=== PATIENT | female | born 1980 | race American Indian/Alaskan Native ===

== ENCOUNTER 2017-02-16 08:39 | Emergency (ER) | payer OTHER ==
[2017-02-16 08:40] VITALS: BMI 34.9
[2017-02-16 08:55] VITALS: TEMP 98.8
[2017-02-16] MEDS ORDERED: Lidocaine 1%/Epinephrine 1:100000 30 ml vial IJ STA (09:04)
--- NOTE | 2017-02-16 09:05 | ED PDOC ---
Arrival/HPI - General Chief Complaint: Abnormal Skin Integrity Time Seen by Provider: 02/16/17 08:58 Historian: Patient - History of Present Illness Narrative History of Present Illness (Text): 02/16/17 09:00 Maryan Del Cid is a 36 year old female, who presents to the emergency department complaining of an abscess in the right axilla. Patient notes she has had this multiple times in the past along with I&D's. Patient denies fever, vomiting, headache, or other complaints. Time/Duration: < week Symptom Onset: Sudden Symptom Course: Unchanged Past Medical History - Provider Review Nursing Documentation Reviewed: Yes - Infectious Disease Hx of Infectious Diseases: None - Tetanus Immunization Tetanus Immunization: Unknown - Reproductive Menopause: No - Past Medical History Past Medical History: No Previous - Cardiac Hx Cardiac Disorders: No - Pulmonary Hx Respiratory Disorders: No - Neurological Hx Neurological Disorder: No - HEENT Hx HEENT Disorder: No - Renal Hx Renal Disorder: No - Endocrine/Metabolic Hx Endocrine Disorders: No - Hematological/Oncological Hx Blood Disorders: No - Integumentary Hx Dermatological Disorder: Yes Other/Comment: axila abscess bilateral and pylinidal cyst - Musculoskeletal/Rheumatological Hx Musculoskeletal Disorders: No - Gastrointestinal Hx Gastrointestinal Disorders: No Hx Bowel Surgery: No - Genitourinary/Gynecological Hx Genitourinary Disorders: No - Psychiatric Hx Psychophysiologic Disorder: No Hx Depression: No Hx Emotional Abuse: No Hx Physical Abuse: No Hx Substance Use: No - Past Surgical History Past Surgical History: Non-Contributing - Surgical History Hx Orthopedic Surgery: Yes (FX JAW, metal plate) - Anesthesia Hx Anesthesia: Yes Hx Anesthesia Reactions: No Hx Malignant Hyperthermia: No - Suicidal Assessment Feels Threatened In Home Enviroment: No Family/Social History - Physician Review Nursing Documentation Reviewed: Yes Family/Social History: Unknown Family HX Smoking Status: Heavy Smoker > 10 Cigarettes Daily Hx Alcohol Use: No Hx Substance Use: No Hx Substance Use Treatment: No Allergies/Home Meds Allergies/Adverse Reactions: Allergies string beans Allergy (Uncoded 02/16/17 08:55) RASH Review of Systems - Review of Systems Constitutional: absent: Fevers Respiratory: absent: SOB Cardiovascular: absent: Chest Pain Gastrointestinal: absent: Abdominal Pain Genitourinary Female: absent: Dysuria Musculoskeletal: absent: Back Pain Skin: Abscess (under right axilla ) Neurological: absent: Headache Physical Exam Vital Signs Reviewed: Yes Vital Signs Temp Pulse Resp BP Pulse Ox 02/16/17 09:56 98.8 F 78 18 133/88 99 02/16/17 08:51 98.8 F 60 16 113/80 98 Temperature: Afebrile Blood Pressure: Normal Pulse: Regular Respiratory Rate: Normal Appearance: Positive for: Well-Appearing, Non-Toxic, Comfortable Pain Distress: None Mental Status: Positive for: Alert and Oriented X 3 - Systems Exam Head: Present: Atraumatic, Normocephalic Pupils: Present: PERRL Extroacular Muscles: Present: EOMI Conjunctiva: Present: Normal Breast/Axillary: Present: Fluctuance (right axilla) Upper Extremity: Present: Normal Inspection, Normal ROM, NORMAL PULSES, Neurovascularly Intact, Capillary Refill < 2s. No: Cyanosis, Edema, Tenderness , Swelling, Deformity Neurological: Present: GCS=15, CN II-XII Intact, Speech Normal Skin: Present: Warm, Dry, Normal Color, Abscess (right axilla abscess with fluctuance ). No: Rashes Psychiatric: Present: Alert, Oriented x 3, Normal Insight, Normal Concentration Medical Decision Making ED Course and Treatment: 02/16/17 11:16 bedside us shows small colectionnitrous oxide given, with i and d.. 2 day return for wound check - Medication Orders Current Medication Orders: Discontinued Medications Lidocaine/Epinephrine (Lidocaine 1%/Epinephrine 1:[id number] 30 Ml) 10 ml IJ STAT STA Stop: 02/16/17 09:05 Last Admin: 02/16/17 09:18 Dose: 10 ml Naproxen (Anaprox Ds) 550 mg PO STAT STA Stop: 02/16/17 09:54 - Procedure PROCEDURE NOTE (Text): 02/16/17 Procedure: Incision & Drainage Performed by the emergency provider Dr. Suarez Indication: Abscess Location: right axilla Preparation: The area was prepped and draped in the usual sterile fashion and was cleansed. Local infiltration of Lidocaine 1% with Epi was used for anesthesia. Procedure: The most fluctuant portion of the abscess was incised with a #11 scalpel. Approximately 1 mL was obtained. The abscess was packed. A dressing was applied by the RN. Post-Procedure: On exam the abscess is notably less fluctuant. The patient tolerated the procedure well, and there were no complications. Cultured: NO - Scribe Statement The provider has reviewed the documentation as recorded by the Scribe Yaneth Holt Provider Scribe Attestation: All medical record entries made by the Scribe were at my direction and personally dictated by me. I have reviewed the chart and agree that the record accurately reflects my personal performance of the history, physical exam, medical decision making, and the department course for this patient. I have also personally directed, reviewed, and agree with the discharge instructions and disposition. Disposition/Present on Arrival - Present on Arrival Any Indicators Present on Arrival: No History of DVT/PE: No History of Uncontrolled Diabetes: No Urinary Catheter: No History of Decub. Ulcer: No History Surgical Site Infection Following: None - Disposition Have Diagnosis and Disposition been Completed?: Yes Diagnosis: Abscess Disposition: HOME/ ROUTINE Disposition Time: 10:00 Condition: STABLE Discharge Instructions (ExitCare): Abscess Incision and Drainage (ED), Abscess (ED) Additional Instructions: juan lo with your doctor. return to emergency room in 2 days or your doctor for wound check Prescriptions: Naproxen 500 mg PO BID PRN #14 tablet.[address] BUCK Reason: Pain, Mild (1-3) Sulfamethoxazole/Trimethoprim [Bactrim DS 800 mg-160 mg] 1 tab PO BID #14 tab Referrals: [facility] [Outside] - [place] up with [place] [facility] [place] - Follow up with primary Forms: [facility] (Chinese), WORK NOTE
[2017-02-16] MEDS ORDERED: Naproxen 550 mg Tab PO STA (09:53)
[2017-02-16 09:58] VITALS: BP 133/88; PULSE 78; RESP 18; O2SAT 99
== END 2017-02-16 09:56 | disposition home or self-care (01) ==
LOC: ED 08:39
DX: L02.411 Cutaneous abscess of right axilla (principal); F17.210 Nicotine dependence, cigarettes, uncomplicated

== ENCOUNTER 2017-07-02 21:52 | Observation (INO) | payer OTHER ==
[2017-07-02 22:03] VITALS: RESP 18
--- NOTE | 2017-07-02 22:25 | ED PDOC ---
Arrival/HPI - General Chief Complaint: Chest Pain Time Seen by Provider: 07/02/17 22:04 Historian: Patient - History of Present Illness Narrative History of Present Illness (Text): 07/02/17 22:23 A 37 year old female, with no significant past medical history, presents to the emergency department complaining of intermittent, mid-sternal chest discomfort. The patient states that she is a smoker, but denies any drug use. The patient denies fevers, chills, headache, dizziness, shortness of breath, dyspnea on exertion, cough, abdominal pain, nausea, vomiting, diarrhea, back pain, neck pain, urinary/bowel changes, or any other complaint. PMD: Dr. Telles Time/Duration: Other (Few Days) Symptom Onset: Sudden Symptom Course: Unchanged Activities at Onset: Rest, Light Context: Home Past Medical History - Provider Review Nursing Documentation Reviewed: Yes - Infectious Disease Hx of Infectious Diseases: None - Tetanus Immunization Tetanus Immunization: Unknown - Past Medical History Past Medical History: No Previous - Cardiac Hx Cardiac Disorders: No - Pulmonary Hx Respiratory Disorders: No - Neurological Hx Neurological Disorder: No - HEENT Hx HEENT Disorder: No - Renal Hx Renal Disorder: No - Endocrine/Metabolic Hx Endocrine Disorders: No - Hematological/Oncological Hx Blood Disorders: No - Integumentary Hx Dermatological Disorder: Yes Other/Comment: axila abscess bilateral and pylinidal cyst - Musculoskeletal/Rheumatological Hx Musculoskeletal Disorders: No - Gastrointestinal Hx Gastrointestinal Disorders: No Hx Bowel Surgery: No - Genitourinary/Gynecological Hx Genitourinary Disorders: No - Psychiatric Hx Psychophysiologic Disorder: No Hx Depression: No Hx Emotional Abuse: No Hx Physical Abuse: No Hx Substance Use: No - Past Surgical History Past Surgical History: Non-Contributing - Surgical History Hx Orthopedic Surgery: Yes (FX JAW, metal plate) - Anesthesia Hx Anesthesia: Yes Hx Anesthesia Reactions: No Hx Malignant Hyperthermia: No - Suicidal Assessment Feels Threatened In Home Enviroment: No Family/Social History - Physician Review Nursing Documentation Reviewed: Yes Family/Social History: No Known Family HX Smoking Status: Heavy Smoker > 10 Cigarettes Daily Hx Alcohol Use: No Hx Substance Use: No Hx Substance Use Treatment: No Allergies/Home Meds Allergies/Adverse Reactions: Allergies string beans Allergy (Uncoded 07/02/17 21:58) RASH Home Medications: Home Meds Medication Instructions Recorded Confirmed No Known Home Med 07/02/17 07/02/17 Review of Systems - Physician Review All systems were reviewed & negative as marked: Yes - Review of Systems Constitutional: absent: Fevers, Night Sweats Respiratory: absent: SOB, Cough Cardiovascular: Chest Pain (Mid-sternal chest discomfort.). absent: LOZANO Gastrointestinal: absent: Abdominal Pain, Stool Changes, Diarrhea, Nausea, Vomiting Genitourinary Female: absent: Urine Output Changes Musculoskeletal: absent: Back Pain, Neck Pain Neurological: absent: Headache, Dizziness Physical Exam Vital Signs Reviewed: Yes Vital Signs Temp Pulse Resp BP Pulse Ox 07/02/17 22:02 98.0 F 66 18 122/75 100 Temperature: Afebrile Blood Pressure: Normal Pulse: Regular Respiratory Rate: Normal Appearance: Positive for: Well-Appearing, Non-Toxic, Comfortable Pain Distress: None Mental Status: Positive for: Alert and Oriented X 3 - Systems Exam Head: Present: Atraumatic, Normocephalic Pupils: Present: PERRL Extroacular Muscles: Present: EOMI Conjunctiva: Present: Normal Mouth: Present: Moist Mucous Membranes Neck: Present: Normal Range of Motion Respiratory/Chest: Present: Clear to Auscultation, Good Air Exchange. No: Respiratory Distress, Accessory Muscle Use Cardiovascular: Present: Regular Rate and Rhythm, Normal S1, S2. No: Murmurs Abdomen: No: Tenderness, Distention, Peritoneal Signs Back: Present: Normal Inspection Upper Extremity: Present: Normal Inspection. No: Cyanosis, Edema Lower Extremity: Present: Normal Inspection. No: Edema Neurological: Present: GCS=15, CN II-XII Intact, Speech Normal Skin: Present: Warm, Dry, Normal Color. No: Rashes Psychiatric: Present: Alert, Oriented x 3, Normal Insight, Normal Concentration Medical Decision Making ED Course and Treatment: 07/02/17 22:26 Impression: A 37 year old male presents to the emergency department complaining of mid- sternal chest discomfort. Plan: -- EKG -- Chest X-ray -- Labs -- Reassess and disposition Progress Notes: EKG: Ordered, reviewed, and independently interpreted the EKG. Rate : 70 BPM Rhythm : NSR Interpretation : Normal intervals. Normal EKG. 07/03/17 00:23: Chest X-ray read and interpreted by me shows no acute processes. 07/03/17 00:35: Case discussed with Dr. Telles in detail who accepts patient to her service. - Lab Interpretations Lab Results: 07/02/17 22:20 07/02/17 22:20 Lab Results 07/02/17 22:20: WBC 6.0, RBC 4.28, Hgb 13.4, Hct 37.2, MCV 86.9, MCH 31.3, MCHC 36.0, RDW 12.8, Plt Count 259, MPV 11.8 H 07/02/17 22:20: Sodium 140, Potassium 3.1 L, Chloride 103, Carbon Dioxide 26, Anion Gap 14, BUN 12, Creatinine 0.6 L, Est GFR ( Amer) > 60, Est GFR ( Non-Af Amer) > 60, Random Glucose 109, Calcium 9.1, Total Bilirubin 0.4, AST 20 , ALT 19, Alkaline Phosphatase 54, Lactate Dehydrogenase 405, Total Creatine Kinase 122, Troponin I < 0.01, Total Protein 7.3, Albumin 4.4, Globulin 2.9, Albumin/Globulin Ratio 1.5 07/02/17 22:20: PT 1.1 L, INR 0.96, APTT 27.5, D-Dimer, Quantitative 219 I have reviewed the lab results: Yes - RAD Interpretation Radiology Orders: 07/02/17 22:14 CHEST PORTABLE [RAD] Stat - EKG Interpretation Interpreted by ED Physician: Yes Type: 12 lead EKG - Medication Orders Current Medication Orders: Discontinued Medications Aspirin (Aspirin) 325 mg PO ONCE STA Stop: 07/03/17 00:24 Potassium Chloride (K-Dur 20 Meq Er Tab) 40 meq PO STAT STA Stop: 07/03/17 00:24 - Scribe Statement The provider has reviewed the documentation as recorded by the Scribe Roma Cornejo Provider Scribe Attestation: All medical record entries made by the Scribe were at my direction and personally dictated by me. I have reviewed the chart and agree that the record accurately reflects my personal performance of the history, physical exam, medical decision making, and the department course for this patient. I have also personally directed, reviewed, and agree with the discharge instructions and disposition. Disposition/Present on Arrival - Present on Arrival Any Indicators Present on Arrival: No History of DVT/PE: No History of Uncontrolled Diabetes: No Urinary Catheter: No History of Decub. Ulcer: No History Surgical Site Infection Following: None - Disposition Have Diagnosis and Disposition been Completed?: Yes Diagnosis: Chest pain Disposition: HOSPITALIZED Disposition Time: 00:35 Patient Plan: Observation Patient Problems: Current Active Problems Problem Status Onset Chest pain Acute Condition: STABLE Discharge Instructions (ExitCare): Chest Pain (ED) Referrals: Yolanda Telles MD [Primary Care Provider] - Follow up with primary Forms: [facility] (Indonesian)
[2017-07-02 22:40] LABS: HEMOGLOBIN 13.4 g/dL (12.0-16.0); MEAN CELL VOLUME 86.9 fl (80.0-105.0); MEAN CORPUSCULAR HEMOGLOBIN 31.3 pg (25.0-35.0); MEAN PLATELET VOLUME 11.8 fl (7.0-11.0); RBC 4.28 10^6/uL (3.5-6.1); RED CELL DISTRIBUTION WIDTH 12.8 % (11.5-14.5)
[2017-07-02 22:52] LABS: ALB/GLOB RATIO 1.5 (1.1-1.8); ALBUMIN 4.4 g/dL (3.0-4.8); ALT/SGPT 19 U/L (7-56); AST/SGOT 20 U/L (14-36); BLOOD UREA NITROGEN 12 mg/dL (7-21); CALCIUM 9.1 mg/dL (8.4-10.5); GFR AFRICAN-AMERICAN > 60; GFR NON-AFRICAN AMERICAN > 60
[2017-07-02 22:59] LABS: INR 0.96 (0.93-1.08); PROTHROMBIN TIME 1.1 SECONDS (9.4-12.5)
[2017-07-02 23:00] LABS: PARTIAL THROMBOPLASTIN TIME 27.5 Seconds (25.1-36.5)
[2017-07-02 23:05] LABS: TROPONIN I < 0.01 ng/mL
[2017-07-03] MEDS ORDERED: Potassium Chloride 20 mEq ER Tab PO STA (00:23)
[2017-07-03 04:00] VITALS: BMI 30.4
[2017-07-03 06:23] VITALS: O2SAT 99
[2017-07-03 07:21] LABS: TROPONIN I 0.01 ng/mL
[2017-07-03 07:54] LABS: ALB/GLOB RATIO 1.3 (1.1-1.8); ALBUMIN 3.6 g/dL (3.0-4.8); ALT/SGPT 17 U/L (7-56); AST/SGOT 17 U/L (14-36); BLOOD UREA NITROGEN 13 mg/dL (7-21); CALCIUM 8.8 mg/dL (8.4-10.5); GFR AFRICAN-AMERICAN > 60; GFR NON-AFRICAN AMERICAN > 60; HDL CHOLESTEROL 54 mg/dL (29-60)
[2017-07-03 08:05] LABS: LDL CHOLESTEROL 64 mg/dL (0-129)
--- NOTE | 2017-07-03 08:42 | RAD ---
HISTORY: Chest pain. COMPARISON: 02/07/2013 FINDINGS: LUNGS: No active pulmonary disease. PLEURA: No significant pleural effusion identified, no pneumothorax apparent. CARDIOVASCULAR: Normal. OSSEOUS STRUCTURES: No significant abnormalities. VISUALIZED UPPER ABDOMEN: Normal. OTHER FINDINGS: None. IMPRESSION: No active disease. No significant interval change compared to the prior examination(s).
--- NOTE | 2017-07-03 09:11 | CARD ---
APPROVED REPORT EKG Measurement Heart [id number] <Conclusion> Normal sinus rhythm Normal ECG
[2017-07-03 12:18] VITALS: BP 109/70; PULSE 61; TEMP 98.3
[2017-07-03 15:09] LABS: URINE BILIRUBIN NEGATIVE (NEGATIVE); URINE BLOOD MODERATE (NEGATIVE); URINE GLUCOSE (UA) NEGATIVE (NEGATIVE); URINE LEUKOCYTE ESTERASE NEGATIVE Leu/uL (NEGATIVE); URINE PROTEIN NEGATIVE mg/dL (<30 mg/dL); URINE UROBILINOGEN 0.2 E.U./dL (<1 E.U./dL)
[2017-07-03 15:10] LABS: URINE APPEARANCE CLEAR (CLEAR); URINE COLOR LIGHT YELLOW (YELLOW)
--- NOTE | 2017-07-03 15:15 | CARD ---
APPROVED REPORT EXAM: Two-dimensional and M-mode echocardiogram with Doppler and color Doppler. INDICATION Chest Pain LVFX 2D DIMENSIONS Left Atrium (2D)4.0 (1.6-4.0cm)IVSd0.9 (0.7-1.1cm) LVDd4.3 (3.9-5.9cm)PWd0.8 (0.7-1.1cm) LVDs2.8 (2.5-4.0cm)FS (%) 34.3 % LVEF (%)63.6 (>50%) M-Mode DIMENSIONS Aortic Root2.90 (2.2-3.7cm)Aortic Cusp Exc.2.10 (1.5-2.0cm) Aortic Valve AoV Peak Swwntpdj426.0cm/Robert Peak GR.6mmHg Mitral Valve MV E Hopkujqm503.0cm/sMV A Spaupbpw20.5cm/sE/A ratio2.0 TDI Lateral E' Peak V13.60cm/sMedial E' Peak V11.70cm/sE/Lateral E'8.2 E/Medial E'9.5 Pulmonary Valve PV Peak Wntjkzmj83.9cm/sPV Peak Grad.2mmHg Tricuspid Valve TR Peak Fuhzlhlc593oj/sRAP LBDEIEFN44meEuHC Peak Gr.21mmHg [id number] LEFT VENTRICLE The left ventricle is normal size. There is normal left ventricular wall thickness. The left ventricular function is normal. The left ventricular ejection fraction is within the normal range. LV Ejection Fr; 64%. There is normal LV segmental wall motion. RIGHT VENTRICLE The right ventricle is normal size. The right ventricular systolic function is normal. ATRIA The left atrium size is normal. The right atrium size is normal. AORTIC VALVE The aortic valve is normal in structure. MITRAL VALVE The mitral valve is normal in structure. Mitral regurgitation is trace. TRICUSPID VALVE The tricuspid valve is normal in structure. There is trace to mild tricuspid regurgitation.RVSP 31mm Hg. PERICARDIAL EFFUSION There is no pericardial effusion. <Conclusion> The left ventricle is normal size. There is normal left ventricular wall thickness. The left ventricular function is normal. The left ventricular ejection fraction is within the normal range. LV Ejection Fr; 64%. There is normal LV segmental wall motion. The right ventricular systolic function is normal. The right ventricle is normal size. The left atrium size is normal. The right atrium size is normal. The aortic valve is normal in structure. The tricuspid valve is normal in structure. There is trace to mild tricuspid regurgitation.RVSP 31mm Hg. There is no pericardial effusion.
[2017-07-03 15:24] LABS: URINE BACTERIA TRACE (NEG); URINE RBC 0 - 2 /hpf (0-2); URINE WBC 0 - 2 /hpf (0-6)
--- NOTE | 2017-07-03 17:05 | CON ---
DATE: 07/03/2017 SERVICE: Cardiology. REASON FOR THE CONSULTATION AND FOLLOWUP: Cardiac evaluation, chest pain. BRIEF CLINICAL HISTORY: This is a 37-year-old female with no significant past medical history, came in with complaint of chest pain, feeling of pulling heart inside, so came to the emergency room. Denies any dyspnea on exertion, chest pain on exertion. 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 CURRENT MEDICATIONS: None. PAST HISTORY: None. SOCIAL HISTORY: Denies smoking. Denies any history of alcohol abuse. FAMILY HISTORY: Nothing significant. PAST SURGICAL HISTORY: Significant for ankle fracture, history of plate on jaw, history of pilonidal cyst, history of removal of axillary cyst infected. REVIEW OF SYSTEMS: As per HPI. PHYSICAL EXAMINATION: GENERAL: Height of the patient is 5 feet 5 inches, weight is 182 pounds, body mass index more than 32 kg/m2. VITAL SIGNS: Temperature afebrile, heart rate 64, blood pressure 105/68. HEENT: PERRLA, intact. NECK: Supple. No carotid bruit or thyromegaly. CHEST: Clear to auscultation. HEART: S1 and S2, regular. ABDOMEN: Soft. EXTREMITIES: Clubbing and cyanosis negative. LABORATORY DATA: WBC 6, hemoglobin 13.5, hematocrit 37.2, and platelet count 259. Chemistries show sodium 130, potassium 4.2, chloride 108, carbon dioxide 22, anion gap of 12. BUN 13, creatinine 0.6. TSH 2.77. EKG shows normal sinus rhythm, no acute ST-T wave changes noted. IMPRESSION: Atypical chest pain, very tenderness on the chest, very low risk for cardiac event. RECOMMENDATION: We will add lipid profile, TSH, hemoglobin A1c, echo, and schedule a stress test for risk stratification as outpatient. A paper has been given to Cardiology Department to schedule a stress test as an outpatient. We will discontinue telemetry and start some ibuprofen and NSAID for pain. We will follow with you. The patient had yesterday, potassium that was supplemented, now it is back to normal. Thank you Dr. Telles for providing us the opportunity in taking care of the patient, Maryan Del Cid. Danny Sotomayor MD
--- NOTE | 2017-07-06 08:43 | HP ---
The patient is a 37-year-old female. The patient was seen and examined on the bedside on 07/03/2017 in the telemetry. CHIEF COMPLAINT: Chest pain. HISTORY OF PRESENT ILLNESS: The patient is a 37-year-old, my private patient, with no significant past medical history except hidradenitis suppurativa, came to the emergency department complaining of intermittent midsternal chest discomfort. Patient states that she is a smoker, but denies any drug abuse. Denies fever, chills, headache, dizziness, shortness of breath, dyspnea on exertion, cough, abdominal pain, nausea, vomiting, diarrhea, back pain, hematuria, hematochezia, neck pain, urinary changes or bowel changes. PAST MEDICAL HISTORY: Hidradenitis suppurativa, history of pilonidal cyst, history of jaw metal plate. FAMILY HISTORY: Father has history of hypertension, renal insufficiency. Mother, noncontributory. HABITS: Heavy smoker, 10 cigarettes a day. Alcohol: No. Substance abuse: No. ALLERGIES: PATIENT had BEES ALLERGY. HOME MEDICATIONS: Denied. REVIEW OF SYSTEMS: The patient was seen and examined at the bedside to the telemetry, looking comfortable. No nausea, vomiting or diarrhea. No hematuria or hematochezia. No swelling of the leg. No chest pain at that moment of the examination. No fever, no chills. No shortness of breath. No coughing. No abdominal pain, stool changes, diarrhea, nausea, or vomiting. No back pain. PHYSICAL EXAMINATION: VITAL SIGNS: Temperature 98, pulse 56, respiratory rate 18, blood pressure 128/75, pulse oximetry 100. HEENT: Head, normocephalic and atraumatic. Eyes, PERRLA. Extraocular muscles intact. Conjunctivae clear. Nose patent. Mucous membrane moist. NECK: Supple. No carotid bruit. No JVD or thyromegaly. CHEST: Bilaterally symmetrical. HEART: S1 and S2 positive. LUNGS: Clear to auscultation. ABDOMEN: Soft, bowel sounds present. No organomegaly. EXTREMITIES: No edema, no cyanosis. NEUROLOGIC: The patient is awake, alert. Moving all 4 extremities. No focal deficit. LABORATORY DATA: White blood cell 6, hemoglobin 13.4, hematocrit noted Sodium 140, potassium 3.1, BUN 12, creatinine 0.6 and glucose 109. ASSESSMENT AND PLAN: The patient is a 37-year-old lady with hypokalemia, replaced and history of hidradenitis suppurativa, came with chest pain. Potassium was replaced. Chest pain looks like acute. Vitals are stable. Troponins were less than 0.01, two sets. Cardiology consult called, seen by Dr. Sotomayor. Patient is a smoker. According to painter maintenance, chest pain looks like atypical, very low risk for cardiac event. [employer] Insulator Helper cleared the patient, we will discharge the patient. We will follow up as outpatient. Yolanda Telles MD MTDD
== END 2017-07-03 16:06 | disposition home or self-care (01) ==
LOC: ED 21:52 → ERH 07-03 00:33 → 2RSO 07-03 03:35
PROVIDERS: ADMIT Internal Medicine; ATTEND Internal Medicine
DX: R07.89 Other chest pain (principal); E87.6 Hypokalemia; F17.210 Nicotine dependence, cigarettes, uncomplicated; L73.2 Hidradenitis suppurativa; Z82.49 Family history of ischemic heart disease and other diseases of the circulatory system
CPT/HCPCS: 36415; 71045; 80053; 80061; 81001; 82550; 83036; 83615; 84443; 84484; 85027; 85378; 85610; 85730; 93005; 93306; 99285; G0378

== ENCOUNTER 2017-12-15 15:42 | Emergency (ER) | payer OTHER ==
[2017-12-15 16:00] VITALS: BMI 29.9
[2017-12-15 16:09] VITALS: RESP 18; TEMP 98.3; O2SAT 100
--- NOTE | 2017-12-15 16:49 | ED PDOC ---
Arrival/HPI - General Chief Complaint: Chest Pain Time Seen by Provider: 12/15/17 15:50 Historian: Patient - History of Present Illness Narrative History of Present Illness (Text): 12/15/17 16:05 37 year old female, with no significant past medical history, presents to the Emergency Department complaining of intermittent mid-sternal chest pain since waking up this morning. Patient describes a stabbing pain similar to symptoms in the past secondary to hypokalemia. Patient reports taking potassium prior to arrival with no improvement to symptoms prompting her to present to the Emergency Department for further evaluation. Patient denies any other associated somatic complaints. Patient denies any fever, chills, nausea, vomiting, diarrhea, abdominal pain, shortness of breath, headache, dizziness, neck pain or back pain. Patient denies OCP use, history of blood clots, prolonged immobility, recent surgery, diabetes, hypertension or any cardiac disorder. Patient admits to tobacco use. Time/Duration: 4-6 hours Symptom Onset: Gradual Symptom Course: Unchanged Activities at Onset: Light Context: Home Past Medical History - Provider Review Nursing Documentation Reviewed: Yes - Infectious Disease Hx of Infectious Diseases: None - Tetanus Immunization Tetanus Immunization: Unknown - Past Medical History Past Medical History: No Previous - Cardiac Hx Cardiac Disorders: No - Pulmonary Hx Respiratory Disorders: No - Neurological Hx Neurological Disorder: No - HEENT Hx HEENT Disorder: No - Renal Hx Renal Disorder: No - Endocrine/Metabolic Hx Endocrine Disorders: No - Hematological/Oncological Hx Blood Disorders: Yes Hx Sickle Cell Trait: Yes - Integumentary Hx Dermatological Disorder: Yes Other/Comment: axila abscess bilateral and pylinidal cyst - Musculoskeletal/Rheumatological Hx Musculoskeletal Disorders: No - Gastrointestinal Hx Gastrointestinal Disorders: No Hx Bowel Surgery: No - Genitourinary/Gynecological Hx Genitourinary Disorders: No - Psychiatric Hx Psychophysiologic Disorder: No Hx Substance Use: No - Past Surgical History Past Surgical History: Non-Contributing - Surgical History Other/Comment: jaw repair,metal plate - Anesthesia Hx Anesthesia: Yes Hx Anesthesia Reactions: No Hx Malignant Hyperthermia: No - Suicidal Assessment Feels Threatened In Home Enviroment: No Family/Social History - Physician Review Nursing Documentation Reviewed: Yes Family/Social History: No Known Family HX Smoking Status: Heavy Smoker > 10 Cigarettes Daily Hx Alcohol Use: No Hx Substance Use: No Hx Substance Use Treatment: No Allergies/Home Meds Allergies/Adverse Reactions: Allergies string beans Allergy (Uncoded 12/15/17 16:09) RASH Home Medications: Home Meds Medication Instructions Recorded Confirmed No Known Home Med 07/02/17 07/02/17 Review of Systems - Review of Systems Constitutional: absent: Fevers Respiratory: absent: SOB, Cough Cardiovascular: Chest Pain. absent: LOZANO Gastrointestinal: absent: Abdominal Pain, Diarrhea, Nausea, Vomiting Genitourinary Female: absent: Dysuria, Hematuria Musculoskeletal: absent: Back Pain, Neck Pain Neurological: absent: Headache, Dizziness Physical Exam Vital Signs Reviewed: Yes Vital Signs Temp Pulse Resp BP Pulse Ox 12/15/17 16:09 98.3 F 68 18 138/98 H 100 Temperature: Afebrile Blood Pressure: Normal Pulse: Regular Respiratory Rate: Normal Appearance: Positive for: Non-Toxic, Comfortable, Other (Obese) Pain Distress: None Mental Status: Positive for: Alert and Oriented X 3 - Systems Exam Head: Present: Atraumatic, Normocephalic Pupils: Present: PERRL Extroacular Muscles: Present: EOMI Conjunctiva: Present: Normal Mouth: Present: Moist Mucous Membranes Neck: Present: Normal Range of Motion Respiratory/Chest: Present: Clear to Auscultation, Good Air Exchange. No: Respiratory Distress, Accessory Muscle Use Cardiovascular: Present: Regular Rate and Rhythm, Normal S1, S2. No: Murmurs Abdomen: No: Tenderness, Distention, Peritoneal Signs Back: Present: Normal Inspection Upper Extremity: Present: Normal Inspection. No: Cyanosis, Edema Lower Extremity: Present: Normal Inspection. No: Edema Neurological: Present: GCS=15, CN II-XII Intact, Speech Normal Skin: Present: Warm, Dry, Normal Color. No: Rashes Psychiatric: Present: Alert, Oriented x 3, Normal Insight, Normal Concentration Medical Decision Making ED Course and Treatment: 12/15/17 16:05 Impression: 37 year old female presents to the Emergency Department complaining of midsternal chest pain. Differential Diagnosis included but are not limited to: Chest pain r/o ACS vs Musculoskeletal Plan: -- EKG -- Chest X-ray -- Reassess and disposition Prior Visits: Notes and results from previous visits were reviewed. Progress Notes: EKG: Ordered, reviewed, and independently interpreted the EKG. Rate : 71 BPM Rhythm : Sinus arrhythmia Interpretation : QTC 391. No acute ST/T wave changes. 12/15/17 17:07 Patient is perc negative 12/15/17 17:20 Cxray negative 12/15/17 18:05 Patient has no cardiac risk factors. She has a normal ekg. Spoke to PMD Dr. Telles who agrees that she can be discharged. 12/15/17 18:[address] Telles and made aware of negative findings. Patient will be discharged home with follow-up instructions with PMD. Dr. Telles is aware and agrees with plan. - RAD Interpretation Narrative RAD Interpretations (Text): 12/15/17 17:19 Chest X-ray reviewed by radiologist, shows: FINDINGS: LUNGS: No active pulmonary disease. PLEURA: No significant pleural effusion identified. No pneumothorax apparent. CARDIOVASCULAR: Normal. OSSEOUS STRUCTURES: No significant abnormalities. VISUALIZED UPPER ABDOMEN: Normal. OTHER FINDINGS: None. IMPRESSION: No active disease. No significant interval change compared to the prior examination(s). Radiology Orders: 12/15/17 15:50 CHEST TWO VIEWS (PA/LAT) [RAD] Stat Square Cutter: Radiologist - Scribe Statement The provider has reviewed the documentation as recorded by the Scribe Marjorie Marshall. All medical record entries made by the Scribe were at my direction and personally dictated by me. I have reviewed the chart and agree that the record accurately reflects my personal performance of the history, physical exam, medical decision making, and the department course for this patient. I have also personally directed, reviewed, and agree with the discharge instructions and disposition. Disposition/Present on Arrival - Present on Arrival Any Indicators Present on Arrival: No History of DVT/PE: No History of Uncontrolled Diabetes: No Urinary Catheter: No History of Decub. Ulcer: No History Surgical Site Infection Following: None - Disposition Have Diagnosis and Disposition been Completed?: Yes Diagnosis: Chest pain Disposition: HOME/ ROUTINE Disposition Time: 18:05 Patient Plan: Discharge Patient Problems: Current Active Problems Problem Status Onset Chest pain Acute Condition: GOOD Discharge Instructions (ExitCare): Chest Pain, Chest Pain (ED) Additional Instructions: Follow-up with PMD within 2 days. Return to ED if condition worsens. Motkiko for pain. Follow-up with Dr. Sotomayor for further evaluation Referrals: Yolanda Telles MD [Primary Care Provider] - Follow up with primary Danny Sotomayor MD [Staff Provider] - Follow up with primary Forms: [employer] (Bhutanese), WORK NOTE
--- NOTE | 2017-12-15 17:17 | RAD ---
Date of service: 12/15/2017 HISTORY: Chest pain. COMPARISON: 07/02/2017 TECHNIQUE: Chest PA and lateral FINDINGS: LUNGS: No active pulmonary disease. PLEURA: No significant pleural effusion identified. No pneumothorax apparent. CARDIOVASCULAR: Normal. OSSEOUS STRUCTURES: No significant abnormalities. VISUALIZED UPPER ABDOMEN: Normal. OTHER FINDINGS: None. IMPRESSION: No active disease. No significant interval change compared to the prior examination(s).
[2017-12-15 17:40] LABS: ALB/GLOB RATIO 1.4 (1.1-1.8); ALT/SGPT 14 U/L (7-56); AST/SGOT 17 U/L (14-36); BLOOD UREA NITROGEN 10 mg/dL (7-21); CALCIUM 9.1 mg/dL (8.4-10.5); GFR NON-AFRICAN AMERICAN > 60
[2017-12-15 17:51] LABS: BASO # 0.03 K/mm3 (0.0-2.0); BASO % 0.5 % (0.0-3.0); EOS # 0.1 (0.0-0.7); EOS % 2.2 % (1.5-5.0); GRAN # 2.59 (1.4-6.5); GRAN % 41.2 % (50.0-68.0); LYMPH % 48.1 % (22.0-35.0); MEAN CELL VOLUME 87.2 fl (80.0-105.0); MEAN CORPUSCULAR HEMOGLOBIN 30.9 pg (25.0-35.0); MEAN CORPUSCULAR HGB CONC 35.4 g/dl (31.0-37.0); MEAN PLATELET VOLUME 11.9 fl (7.0-11.0); MONO # 0.5 (0.1-0.6); RBC 4.21 10^6/uL (3.5-6.1); RED CELL DISTRIBUTION WIDTH 13.3 % (11.5-14.5); WHITE BLOOD COUNT 6.3 10^3/ul (4.5-11.0)
[2017-12-15 18:22] VITALS: BP 133/88; PULSE 70
--- NOTE | 2017-12-16 06:31 | CARD ---
APPROVED REPORT Date of service: 12/15/2017 EKG Measurement Heart [id number] ID [id number] <Conclusion> Normal sinus rhythm with sinus arrhythmia Normal ECG
== END 2017-12-15 18:54 | disposition home or self-care (01) ==
LOC: ED 15:42
DX: R07.9 Chest pain, unspecified (principal); F17.210 Nicotine dependence, cigarettes, uncomplicated; D57.3 Sickle-cell trait
CPT/HCPCS: 71046; 80053; 83735; 84100; 85025; 93005; 96372; 99283; J1885

== ENCOUNTER 2018-04-13 17:43 | Outpatient (CLI) | payer OTHER | END 2018-04-13 17:44 | disposition home or self-care (01) | LOC: RAD 17:43 ==

== ENCOUNTER 2018-04-17 09:49 | Outpatient (CLI) | payer OTHER | END 2018-04-17 09:50 | disposition home or self-care (01) | LOC: RAD 09:49 | DX: I87.9 Disorder of vein, unspecified (principal) ==

== ENCOUNTER 2018-05-19 12:09 | Emergency (ER) | payer OTHER | END 2018-05-19 14:16 | disposition home or self-care (01) | LOC: ED 12:09 ==

== ENCOUNTER 2018-06-18 15:34 | Emergency (ER) | payer OTHER ==
[2018-06-18 15:35] VITALS: BMI 29.9
--- NOTE | 2018-06-18 15:37 | ED PDOC ---
Arrival/HPI - General Time Seen by Provider: 06/18/18 15:35 Historian: Patient - History of Present Illness Narrative History of Present Illness (Text): 06/18/18 16:21 38 y/o female with PMH of DVT presents to the ED c/o SOB x 3 days. Associated sinus congestion, productive cough and intermittent sharp pleuritic chest pain. This morning she spoke with Liseth, the [employer] for Dr. Raman Beavers, who sent her here for CTA of the chest. Pt was diagnosed with left leg DVT 4 days ago and started on Eliquis, 10mg every 12 hours which she has been taking as prescribed. Pt is also wearing her compression stockings as instructed. Denies fever, chills, abdominal pain, nausea, vomiting, headache, dizziness, neck pain/stiffness, sore throat, back pain, calf pain, or any other associated symptoms. Past Medical History - Provider Review Nursing Documentation Reviewed: Yes - Infectious Disease Hx of Infectious Diseases: None - Tetanus Immunization Tetanus Immunization: Unknown - Past Medical History Past Medical History: No Previous - Cardiac Hx Cardiac Disorders: No - Pulmonary Hx Respiratory Disorders: No - Neurological Hx Neurological Disorder: No - HEENT Hx HEENT Disorder: No - Renal Hx Renal Disorder: No - Endocrine/Metabolic Hx Endocrine Disorders: No - Hematological/Oncological Hx Blood Disorders: Yes Hx Sickle Cell Trait: Yes - Integumentary Hx Dermatological Disorder: Yes Other/Comment: axila abscess bilateral and pylinidal cyst - Musculoskeletal/Rheumatological Hx Musculoskeletal Disorders: No - Gastrointestinal Hx Gastrointestinal Disorders: No Hx Bowel Surgery: No - Genitourinary/Gynecological Hx Genitourinary Disorders: No - Psychiatric Hx Psychophysiologic Disorder: No Hx Substance Use: No - Past Surgical History Past Surgical History: Non-Contributing - Surgical History Other/Comment: jaw repair,metal plate - Anesthesia Hx Anesthesia: Yes Hx Anesthesia Reactions: No Hx Malignant Hyperthermia: No - Suicidal Assessment Feels Threatened In Home Enviroment: No Family/Social History - Physician Review Nursing Documentation Reviewed: Yes Family/Social History: No Known Family HX Smoking Status: Heavy Smoker > 10 Cigarettes Daily Hx Alcohol Use: No Hx Substance Use: No Hx Substance Use Treatment: No Allergies/Home Meds Allergies/Adverse Reactions: Allergies string beans Allergy (Uncoded 06/18/18 15:43) RASH Home Medications: Home Meds Medication Instructions Recorded Confirmed Apixaban [Eliquis] 10 mg PO BID 06/18/18 06/18/18 Review of Systems - Review of Systems Constitutional: Normal. absent: Fevers Eyes: Normal. absent: Vision Changes ENT: Sinus Congestion. absent: Sore Throat Respiratory: SOB, Cough, Sputum. absent: Wheezing Cardiovascular: Chest Pain. absent: Palpitations, Edema, Calf Pain, Syncope Gastrointestinal: Normal. absent: Abdominal Pain, Nausea, Vomiting Genitourinary Female: Normal. absent: Dysuria, Frequency Musculoskeletal: Normal. absent: Back Pain, Neck Pain Skin: Normal. absent: Rash Neurological: Normal. absent: Headache, Dizziness, Focal Weakness Endocrine: Normal Hemo/Lymphatic: Normal Psychiatric: Normal Physical Exam Vital Signs Reviewed: Yes Temperature: Afebrile Blood Pressure: Normal Pulse: Regular Respiratory Rate: Normal Appearance: Positive for: Well-Appearing, Non-Toxic, Comfortable Pain Distress: None Mental Status: Positive for: Alert and Oriented X 3 - Systems Exam Head: Present: Atraumatic, Normocephalic Pupils: Present: PERRL Extroacular Muscles: Present: EOMI Conjunctiva: Present: Normal Mouth: Present: Moist Mucous Membranes Pharnyx: Present: Normal. No: ERYTHEMA, EXUDATE, TONSILS ENLARGED Nose (External): Present: Atraumatic Nose (Internal): Present: Normal Inspection Neck: Present: Normal Range of Motion. No: Meningeal Signs Respiratory/Chest: Present: Clear to Auscultation, Good Air Exchange. No: Respiratory Distress, Accessory Muscle Use Cardiovascular: Present: Regular Rate and Rhythm, Normal S1, S2, Peripheal Pulses Present Abdomen: Present: Normal Bowel Sounds. No: Tenderness, Distention, Peritoneal Signs, Rebound, Guarding Back: Present: Normal Inspection. No: CVA Tenderness Upper Extremity: Present: Normal Inspection, Normal ROM, NORMAL PULSES, Neurovascularly Intact, Capillary Refill < 2s. No: Cyanosis, Edema, Temperature Abnormalties Lower Extremity: Present: Normal Inspection, NORMAL PULSES, Normal ROM, Neurovascularly Intact, Capillary Refill < 2 s. No: Edema, Temperature Abnormalties Neurological: Present: GCS=15, CN II-XII Intact, Speech Normal, Motor Func Grossly Intact, Normal Sensory Function, Gait Normal Skin: Present: Warm, Dry, Normal Color. No: Rashes Psychiatric: Present: Alert, Oriented x 3, Normal Insight, Normal Concentration, Normal Affect, Normal Mood Medical Decision Making ED Course and Treatment: Initial Plan: * CBC, CMP * Coags * Troponin * EKG * CXR * CTA EKG shows NSR at 64, Normal intervals, Normal axis, No STEMI, No S1Q3T3 16:[address] Morgan spoke with vascular surgeon Dr. Raman Beavers regarding the patient. Dr. Beavers requests labs, CTA of chest, and CXR. Orders placed. 17:52 CTA negative for pulmonary embolism 18:[address] Raman Beavers, discussed diagnostic testing results. Advised discharge home with outpatient followup with him as scheduled. Advises for patient to continue Eliquis as prescribed and wear compression stockings. Diagnostic testing results and plan of care discussed with patient. Strict instructions given regarding importance of followup, and signs/symptoms to return to ER including worsening SOB, fever, chills, or any other new/worsening symptoms. Pt verbalized understanding of discussion. Patient is A&Ox3, ambulating with steady gait, with vital signs stable for discharge. - Lab Interpretations Lab Results: 06/18/18 16:20 06/18/18 16:20 Lab Results 06/18/18 16:20: Influenza Typ A,B (EIA) Negative for flu a/b 06/18/18 16:20: Sodium 135, Potassium 3.9, Chloride 102, Carbon Dioxide 27, Anion Gap 9 L, BUN 8, Creatinine 0.6 L, Est GFR ( Amer) > 60, Est GFR (Non-Af Amer) > 60, Random Glucose 93, Calcium 8.5, Phosphorus 2.6, Magnesium 1.8, Total Bilirubin 0.4, AST 27, ALT < 6 L, Alkaline Phosphatase 42, Troponin I < 0.01, Total Protein 7.1, Albumin 3.9, Globulin 3.2, Albumin/Globulin Ratio 1.2 06/18/18 16:20: PT 16.4 H, INR 1.48, APTT 38.0 06/18/18 16:20: WBC 7.3, RBC 4.37, Hgb 13.6, Hct 38.6, MCV 88.3, MCH 31.1, MCHC 35.2, RDW 12.8, Plt Count 323, MPV 11.6 H, Neut % (Auto) 59.1, Lymph % (Auto) 30.9, Teller % (Auto) 6.8 H, Eos % (Auto) 2.6, Baso % (Auto) 0.6, Lymph # (Auto) 2.2, Teller # (Auto) 0.5, Eos # (Auto) 0.2, Baso # (Auto) 0.04, Absolute Neuts (auto) 4.29 I have reviewed the lab results: Yes - RAD Interpretation Narrative RAD Interpretations (Text): 06/18/18 17:52 CTA, PE protocol: FINDINGS: PULMONARY ARTERIES: Unremarkable. No pulmonary embolism. AORTA: No acute findings. No thoracic aortic aneurysm. No atherosclerotic calcification or mural plaque present. LUNGS: Unremarkable. No nodule, mass or pulmonary consolidation. PLEURAL SPACES: Unremarkable. No effusion or pneumothorax. HEART: Unremarkable. No cardiomegaly. No significant pericardial effusion. LYMPH NODES: No lymphadenopathy. BONES, CHEST WALL: Unremarkable. No fracture or destructive lesion OTHER FINDINGS: Unremarkable. IMPRESSION: Unremarkable CT pulmonary angiogram. No pulmonary embolus. Implementation Project Coordinator: Radiologist - EKG Interpretation EKG Interpretation (Text): 06/18/18 17:53 Rate 64; NSR; Normal Herman; Normal intervals; No STEMI or other signs of acute ischemia Interpreted by ED Physician: Yes Type: 12 lead EKG Disposition/Present on Arrival - Present on Arrival Any Indicators Present on Arrival: No History of DVT/PE: No History of Uncontrolled Diabetes: No Urinary Catheter: No History Surgical Site Infection Following: None - Disposition Have Diagnosis and Disposition been Completed?: Yes Diagnosis: SOB (shortness of breath), Viral upper respiratory infection Disposition: HOME/ ROUTINE Disposition Time: 18:45 Patient Plan: Discharge Condition: STABLE Discharge Instructions (ExitCare): Shortness of Breath (Dyspnea) (DC), Viral Upper Respiratory Infection, Adult (DC) Additional Instructions: Increase fluids Continue Eliquis as prescribed Wear compression stockings as instructed Followup with Dr. Beavers on Thursday as scheduled Followup with Dr. Telles within 2 days Return to ER with any new/worsening symptoms Referrals: Yolanda Telles MD [Family Provider] - Follow up with primary Raman Beavers MD [Staff Provider] - Follow up with primary Forms: [employer] (Vincentian), WORK NOTE
[2018-06-18 15:47] VITALS: BP 102/68; PULSE 91; RESP 18; TEMP 98.2; O2SAT 98
[2018-06-18 16:33] LABS: BASO # 0.04 K/mm3 (0.0-2.0); BASO % 0.6 % (0.0-3.0); EOS # 0.2 (0.0-0.7); EOS % 2.6 % (1.5-5.0); HEMOGLOBIN 13.6 g/dL (12.0-16.0); LYMPH # 2.2 (1.2-3.4); LYMPH % 30.9 % (22.0-35.0); MEAN CELL VOLUME 88.3 fl (80.0-105.0); MEAN CORPUSCULAR HEMOGLOBIN 31.1 pg (25.0-35.0); MEAN CORPUSCULAR HGB CONC 35.2 g/dl (31.0-37.0); MEAN PLATELET VOLUME 11.6 fl (7.0-11.0); MONO # 0.5 (0.1-0.6); MONO % 6.8 % (1.0-6.0); RBC 4.37 10^6/uL (3.5-6.1); RED CELL DISTRIBUTION WIDTH 12.8 % (11.5-14.5); WHITE BLOOD COUNT 7.3 10^3/uL (4.5-11.0)
[2018-06-18 16:38] LABS: INR 1.48; PROTHROMBIN TIME 16.4 SECONDS (9.4-12.5)
[2018-06-18 16:41] LABS: BLOOD UREA NITROGEN 8 mg/dL (7-21); CALCIUM 8.5 mg/dL (8.4-10.5); GFR NON-AFRICAN AMERICAN > 60
[2018-06-18 16:46] LABS: ALB/GLOB RATIO 1.2 (1.1-1.8); ALBUMIN 3.9 g/dL (3.0-4.8); ALT/SGPT < 6 U/L (7-56); AST/SGOT 27 U/L (14-36)
[2018-06-18 17:03] LABS: TROPONIN I < 0.01 ng/mL
--- NOTE | 2018-06-18 17:44 | CT ---
Date of service: 06/18/2018 PROCEDURE: CT Chest with contrast (Pulmonary Angiogram) HISTORY: DVT, SOB COMPARISON: 12/15/2017 two-view chest. 04/17/2018 right lower extremity duplex venous sonography. TECHNIQUE: Axial computed tomography images were obtained of the chest in the pulmonary arterial phase of enhancement. Coronal and sagittal reformatted images were created and reviewed. Intravenous contrast dose: 149 cc Omnipaque 350. Mean Hounsfield value in the main pulmonary artery: 477.23 Radiation dose: Total exam DLP = 491.61 mGy-cm. This CT exam was performed using one or more of the following dose reduction techniques: Automated exposure control, adjustment of the mA and/or kV according to patient size, and/or use of iterative reconstruction technique. FINDINGS: PULMONARY ARTERIES: Unremarkable. No pulmonary embolism. AORTA: No acute findings. No thoracic aortic aneurysm. No atherosclerotic calcification or mural plaque present. LUNGS: Unremarkable. No nodule, mass or pulmonary consolidation. PLEURAL SPACES: Unremarkable. No effusion or pneumothorax. HEART: Unremarkable. No cardiomegaly. No significant pericardial effusion. LYMPH NODES: No lymphadenopathy. BONES, CHEST WALL: Unremarkable. No fracture or destructive lesion OTHER FINDINGS: Unremarkable. IMPRESSION: Unremarkable CT pulmonary angiogram. No pulmonary embolus.
--- NOTE | 2018-06-19 07:47 | CARD ---
APPROVED REPORT Date of service: 06/18/2018 EKG Measurement Heart [id number] <Conclusion> Normal sinus rhythm Normal ECG
== END 2018-06-18 18:45 | disposition home or self-care (01) ==
LOC: ED 15:34
DX: J06.9 Acute upper respiratory infection, unspecified (principal); R06.02 Shortness of breath; D57.3 Sickle-cell trait; Z86.718 Personal history of other venous thrombosis and embolism; Z79.01 Long term (current) use of anticoagulants; F17.210 Nicotine dependence, cigarettes, uncomplicated
CPT/HCPCS: 71275; 80053; 81025; 83735; 84100; 84484; 85025; 85610; 85730; 87804; 93005; 99283; Q9967

== ENCOUNTER 2018-07-28 14:14 | Emergency (ER) | payer OTHER ==
[2018-07-28 14:14] VITALS: BMI 29.9
[2018-07-28 14:38] VITALS: TEMP 98.4
--- NOTE | 2018-07-28 14:58 | ED PDOC ---
Arrival/HPI - General Chief Complaint: Finger,Hand,&Wrist Historian: Patient - History of Present Illness Narrative History of Present Illness (Text): 07/28/18 14:56 A 38 year old female presents to the emergency department complaining of right hand 5th digit injury. 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 She states her hand became suspended under the patient. Notes pinky was stuck and difficult to dislodge, and after having done so, patient had difficulty extending pinky. Patient denies any diminished pulses, paresthesia, or any other complaints at this time. Past Medical History - Provider Review Nursing Documentation Reviewed: Yes - Infectious Disease Hx of Infectious Diseases: None - Tetanus Immunization Tetanus Immunization: Unknown - Past Medical History Past Medical History: No Previous - Cardiac Hx Cardiac Disorders: No - Pulmonary Hx Respiratory Disorders: No - Neurological Hx Neurological Disorder: No - HEENT Hx HEENT Disorder: No - Renal Hx Renal Disorder: No - Endocrine/Metabolic Hx Endocrine Disorders: No - Hematological/Oncological Hx Blood Disorders: Yes Hx Sickle Cell Trait: Yes - Integumentary Hx Dermatological Disorder: Yes Other/Comment: axila abscess bilateral and pylinidal cyst - Musculoskeletal/Rheumatological Hx Musculoskeletal Disorders: No - Gastrointestinal Hx Gastrointestinal Disorders: No Hx Bowel Surgery: No - Genitourinary/Gynecological Hx Genitourinary Disorders: No - Psychiatric Hx Psychophysiologic Disorder: No Hx Substance Use: No - Past Surgical History Past Surgical History: Non-Contributing - Surgical History Other/Comment: jaw repair,metal plate - Anesthesia Hx Anesthesia: Yes Hx Anesthesia Reactions: No Hx Malignant Hyperthermia: No - Suicidal Assessment Feels Threatened In Home Enviroment: No Family/Social History - Physician Review Nursing Documentation Reviewed: Yes Family/Social History: No Known Family HX Smoking Status: Heavy Smoker > 10 Cigarettes Daily Hx Alcohol Use: No Hx Substance Use: No Hx Substance Use Treatment: No Allergies/Home Meds Allergies/Adverse Reactions: Allergies string beans Allergy (Uncoded 07/28/18 14:38) RASH Home Medications: Home Meds Medication Instructions Recorded Confirmed Apixaban [Eliquis] 10 mg PO BID 06/18/18 07/28/18 Review of Systems - Physician Review All systems were reviewed & negative as marked: Yes - Review of Systems Musculoskeletal: Other (right pinky injury) Neurological: absent: Other (no paresthesia, no diminished pulses) Physical Exam Vital Signs Reviewed: Yes Vital Signs Temp Pulse Resp BP Pulse Ox 07/28/18 14:35 98.4 F 57 L 18 116/83 97 Temperature: Afebrile Blood Pressure: Normal Pulse: Regular Respiratory Rate: Normal Appearance: Positive for: Well-Appearing, Non-Toxic, Comfortable Pain Distress: None Mental Status: Positive for: Alert and Oriented X 3 - Systems Exam Upper Extremity: Present: NORMAL PULSES, Capillary Refill < 2s. No: Normal ROM (patient unable to extend finger) Skin: Present: Warm, Dry, Normal Color. No: Rashes Psychiatric: Present: Alert, Oriented x 3, Normal Insight, Normal Concentration Medical Decision Making ED Course and Treatment: 07/28/18 14:58 Impression: 38 year old female with right hand 5th digit injury. Plan: -- Right Hand X-Ray -- Motrin -- POC Urine -- Reassess and disposition Progress Notes: 07/28/18 16:20 - RAD Interpretation Narrative RAD Interpretations (Text): 07/28/2018 15:27 Right Hand X-Ray IMPRESSION: Normal right hand radiographs. Dictator: Dennis Siddiqui MD Radiology Orders: 07/28/18 14:43 HAND RIGHT 3 VIEWS [RAD] Stat - Medication Orders Current Medication Orders: Discontinued Medications Ibuprofen (Motrin Tab) 600 mg PO STAT STA Stop: 07/28/18 14:44 - Scribe Statement The provider has reviewed the documentation as recorded by the Caseibe Francisco J Hartley Provider Scribe Attestation: All medical record entries made by the Scribe were at my direction and personally dictated by me. I have reviewed the chart and agree that the record accurately reflects my personal performance of the history, physical exam, medical decision making, and the department course for this patient. I have also personally directed, reviewed, and agree with the discharge instructions and disposition. Disposition/Present on Arrival - Present on Arrival Any Indicators Present on Arrival: Yes History of DVT/PE: Yes History of Uncontrolled Diabetes: No Urinary Catheter: No History of Decub. Ulcer: No History Surgical Site Infection Following: None - Disposition Have Diagnosis and Disposition been Completed?: Yes Diagnosis: Finger contusion Disposition: HOME/ ROUTINE Disposition Time: 16:19 Patient Plan: Discharge Condition: STABLE Discharge Instructions (ExitCare): Common Finger Injuries (DC) Print Language: BURKINAN Additional Instructions: All medical record entries made by the Scribe were at my direction and personally dictated by me. I have reviewed the chart and agree that the record accurately reflects my personal performance of the history, physical exam, med [facility] decision making, and the department course for this patient. I have also personally directed, reviewed, and agree with the discharge instructions and disposition. Please follow up with the orthopedic surgeon Referrals: Callie Connor MD [Medical Doctor] - Follow up with primary [facility] [place] - Follow up with primary Forms: [employer] (Armenian), WORK NOTE
--- NOTE | 2018-07-28 15:30 | RAD ---
PROCEDURE: Right Hand Radiographs. HISTORY: hand injury w hyperflexion of 5th digit COMPARISON: None. TECHNIQUE: 3 views obtained. FINDINGS: BONES: Normal. No fracture. JOINTS: Normal. No osteoarthritic changes. SOFT TISSUES: Normal. OTHER FINDINGS: None. IMPRESSION: Normal right hand radiographs.
[2018-07-28 16:49] VITALS: BP 131/59; PULSE 55; RESP 17; O2SAT 100
== END 2018-07-28 16:52 | disposition home or self-care (01) ==
LOC: ED 14:14
DX: S60.051A Contusion of right little finger without damage to nail, initial encounter (principal); W23.0XXA Caught, crushed, jammed, or pinched between moving objects, initial encounter; F17.210 Nicotine dependence, cigarettes, uncomplicated; D57.3 Sickle-cell trait; Z86.711 Personal history of pulmonary embolism; Z86.718 Personal history of other venous thrombosis and embolism